=== PATIENT | male | born 1955 | race Caucasian/White ===

== ENCOUNTER → 2021-02-17 | Day surgery (SDC) | payer MEDICARE, OTHER ==
[~2021-02-17] MED LIST: ASPIRIN EC81 MG PO; CATAPRES0.1 MG PO; CO Q-10100 MG PO; DEPO-TESTO200 MG/1 M SC; LIPITOR20 MG PO; LOPRESSOR25 MG PO; LOVAZA1 GM PO
[2021-02-17 11:14] LABS: ALBUMIN 3.8 g/dL (3.4-5.0); BILIRUBIN - TOTAL 0.7 mg/dL (0.2-1.0); BUN/CREAT RATIO (CALC) 15.8 RATIO; CREATININE 0.95 mg/dL (0.67-1.17); HCT 42.8 % (42.0-52.0); HGB 14.8 g/dl (13.2-18.0); MCH 30.7 pg (25.0-31.0); MCHC 34.6 g/dL (32.0-36.0); MCV 88.8 fL (78.0-100.0); MPV 10.8 fL (6.0-9.5); POTASSIUM 4.1 mmol/L (3.5-5.1); RBC 4.82 M/uL (4.70-6.00); RDW 12.1 % (11.5-14.0); TOTAL PROTEIN 6.8 g/dL (6.4-8.2); WBC 5.2 K/uL (4.0-10.5)
== END | disposition home or self-care (01) ==
LOC: FAS 09:57
PROVIDERS: Surgery
DX: K21.00 Gastro-esophageal reflux disease with esophagitis, without bleeding (principal); K29.50 Unspecified chronic gastritis without bleeding; E88.89 Other specified metabolic disorders; E78.00 Pure hypercholesterolemia, unspecified; I10 Essential (primary) hypertension; M19.90 Unspecified osteoarthritis, unspecified site; Z79.899 Other long term (current) drug therapy; Z80.0 Family history of malignant neoplasm of digestive organs; Z82.49 Family history of ischemic heart disease and other diseases of the circulatory system; Z20.822 Contact with and (suspected) exposure to COVID-19
CPT/HCPCS: 36415; 80053; 88305; 88342; J2704; J7120

== ENCOUNTER → 2021-09-12 | Day surgery (SDC) | payer MEDICARE, OTHER ==
[~2021-09-12] VITALS: Ht 175.3 cm; Wt 84.0 kg
[~2021-09-12] MED LIST changes: +NORCO 5-325 TA1 EACH PO; +ONDANSETRON ODT8 MG PO
[2021-09-12 07:21] LABS: HCT 44.8 % (42.0-52.0); HGB 15.2 g/dl (13.2-18.0); MCH 29.8 pg (25.0-31.0); MCHC 33.9 g/dL (32.0-36.0); MCV 87.8 fL (78.0-100.0); MPV 10.3 fL (6.0-9.5); RBC 5.1 M/uL (4.70-6.00); RDW 12.4 % (11.5-14.0); WBC 6.1 K/uL (4.0-10.5)
[2021-09-12 07:46] LABS: ALBUMIN 3.9 g/dL (3.4-5.0); BILIRUBIN - TOTAL 0.4 mg/dL (0.2-1.0); BUN/CREAT RATIO (CALC) 17.7 RATIO; CREATININE 0.96 mg/dL (0.67-1.17); GLOBULIN (CALCULATION) 3.2 g/dL; POTASSIUM 4.4 mmol/L (3.5-5.1); TOTAL PROTEIN 7.1 g/dL (6.4-8.2)
== END | disposition home or self-care (01) ==
LOC: FAS 06:50
PROVIDERS: Surgery
DX: K80.11 Calculus of gallbladder with chronic cholecystitis with obstruction (principal); K82.8 Other specified diseases of gallbladder; K76.0 Fatty (change of) liver, not elsewhere classified; I10 Essential (primary) hypertension; E78.00 Pure hypercholesterolemia, unspecified; K21.9 Gastro-esophageal reflux disease without esophagitis; Z79.82 Long term (current) use of aspirin; Z79.899 Other long term (current) drug therapy; Z85.828 Personal history of other malignant neoplasm of skin; Z82.49 Family history of ischemic heart disease and other diseases of the circulatory system; Z80.0 Family history of malignant neoplasm of digestive organs; Z72.89 Other problems related to lifestyle
CPT/HCPCS: 36415; 80053; C1758; J1170; J2405; J2704; J2710; J3010; J7120; Q9967